=== PATIENT | male | born 1960 ===

== ENCOUNTER 2025-03-15 07:29 | Day surgery (SDC) | payer BC, SELFPAY ==
[2025-03-15] VITALS (19 sets, daily range): BP systolic 98–139; BP diastolic 68–89; BMI 26.5
[2025-03-15 08:39] LABS: Glucose - Point of Care 150 mg/dl (70-99)
[2025-03-15] MEDS: NSS 252 ML IV (08:52)
[2025-03-15 10:42] LABS: ACT-LR - POC > 397 Seconds (116-155)
--- NOTE | 2025-03-15 16:24 | ITS.CL.PN ---
Electrical Inspector - Procedure Note
Procedure
Procedure Note:
CARDIAC CATHETERIZATION REPORT
Date of Procedure: 03/15/2025
Referring: Dr. Timur Galindo MD
Indication: NSTEMI
PROCEDURE(S)
1. left heart catheterization
2. coronary angiography
3. iFR LAD
ACCESS: 6F right radial artery (closure: radial band)
CATHETERS
1. 6F JR4
2. 6F JL4
3. 6F EBU3.75 guide
MODERATE SEDATION: 25 minutes of moderate sedation was utilized. An independent certified medical coder was present to assist with and help manage the patient's level of consciousness and physiologic status.
HEMODYNAMIC DATA
LV 104/8 (EDP 13) mmHg
AO 98/72 (mean 83) mmHg
CORONARY ANGIOGRAPHY
Dominance: Right
LM: Large, normal
LAD: Large vessel giving rise to a large D1 and wrapping around the apex. The D1 has a focal 80% stenosis in the mid body and the LAD has a 50% stenosis in the mid vessel after the D1 which was further assessed by iFR.
LCx: Large vessel giving rise to a moderate caliber OM1, moderate caliber OM 2, and moderate caliber OM 3. There is a focal 60% stenosis in the proximal portion of the OM1, up to 70% calcified disease in the proximal OM 2, and otherwise mild luminal
irregularities.
RCA: Large ectatic vessel giving rise to a medium caliber RPDA, large RPL1, and several additional small RPL branches. There is moderate stenosis in the mid RCA and subtotal occlusion of the ostial RPDA with DONALD II flow distally and evidence of
[id number] septal collaterals from the LAD
iFR of LAD
An Omni wire was flushed and zeroed outside the body and then advanced to the left main. The wire introducer was removed and the catheter flushed with saline, after which pressure of the wire and guide were normalized. The wire was advanced to the
mid LAD and iFR recorded at 0.99. On return to the left main, iFR appropriately normalized to ~1.0, confirming lack of wire drift.
RADIATION: dose 629 mGy; DAP 53 Gy*cm2; fluoroscopy time 11.6 min
CONCLUSIONS
1. Obstructive coronary artery disease as described with likely culprit stenosis of patient's recent NSTEMI being the subtotaled RPDA with distal [id number] collaterals. Given that the patient is chest pain-free and the infarct appears to be old
with collaterals already formed, intervention is not indicated. iFR of the mid LAD was definitively negative, thus multivessel surgical revascularization would not provide a MARTÍNEZ but would only target branch vessels and thus would not be of clear
benefit. Best approach at this time is aggressive medical management of coronary artery disease with goal LDL less than 55 and aggressive risk factor modification otherwise.
2. Okay to resume apixaban tonight. Would consider a period of months up to 1 year of combined therapy with apixaban and aspirin given recent medically managed NSTEMI and high burden coronary artery disease.
Copy to: Dr. Timur Galindo MD ([facility]); Dr. Prasanna Becerra MD (PCP)
Signed: Sonu Easley MD, PhD
== END 2025-03-15 15:00 | disposition home or self-care (01) ==
LOC: CATH 07:29
PROVIDERS: ATTENDING PHYSICIAN Student in an Organized Health Care Education/Training Program; REFERRING PHYSICIAN Internal Medicine Cardiovascular Disease
DX: I21.4 Non-ST elevation (NSTEMI) myocardial infarction (principal); I25.10 Atherosclerotic heart disease of native coronary artery without angina pectoris; Z79.84 Long term (current) use of oral hypoglycemic drugs; Z79.85 Long-term (current) use of injectable non-insulin antidiabetic drugs; E11.9 Type 2 diabetes mellitus without complications; I10 Essential (primary) hypertension; E78.5 Hyperlipidemia, unspecified
CPT/HCPCS: 93799; 99152; 99153; 82962; 85347; 93458; C1769; C1894; Q9967